=== PATIENT | female | born 1985 | race African-American/Black ===

== ENCOUNTER → 2018-01-09 | Outpatient (CLI) | payer BC, MEDICAID ==
[~2018-01-09] MED LIST: ATIVAN; PROZAC
[2018-01-09 13:28] LABS: CLARITY URINE CLEAR (CLEAR); COLOR URINE YELLOW (YELLOW); KETONES URINE NEGATIVE (NEGATIVE); LEUKOCYTE ESTERASE URINE NEGATIVE (NEGATIVE); NITRITE URINE NEGATIVE (NEGATIVE); OCCULT BLOOD URINE NEGATIVE (NEGATIVE); PH URINE 5.5 (4.5-8.0); PROTEIN URINE NEGATIVE (NEGATIVE); SPECIFIC GRAVITY URINE 1.028 (1.005-1.030); UROBILINOGEN URINE 0.2 E.U./dL (0.2-1.0)
[2018-01-09 13:50] LABS: BASOPHILS % 0.6 % (0.0-2.0); HEMATOCRIT. 35.5 % (36.0-48.0); HEMOGLOBIN. 11.3 g/dL (12.0-16.0); LYMPHOCYTES % 24.7 % (20.0-50.0); MEAN CORPUSCULAR HEMOGLOBIN 26.2 pg (28.0-32.0); MEAN CORPUSCULAR VOLUME 82.2 fL (81.0-99.0); MEAN PLATELET VOLUME 8.5 fl (7.4-10.4); MONOCYTES % 6.8 % (2.0-8.0); NEUTROPHILS % 65.9 % (40.0-76.0); PLATELET 356 x1000/uL (130-400); RED BLOOD CELL COUNT 4.31 mill/uL (4.2-5.4); RED CELL DISTRIBUTION WIDTH 16.3 % (11.6-14.6)
[2018-01-09 13:57] LABS: CHLORIDE 104 mEq/L (98-107)
[2018-01-09 14:03] LABS: LDL CHOLESTEROL 103 mg/dL (5-100)
[2018-01-09 14:05] LABS: HDL CHOLESTEROL 78 mg/dL (40-59)
[2018-01-09 14:07] LABS: T4 FREE 1.03 ng/dL (0.76-1.46)
[2018-01-09 14:14] LABS: HEPATITIS B SURFACE AB 54.6 mIU/mL
[2018-01-11 13:09] LABS: HIV SCREEN 4G Non Reactive (Non Reactive)
== END | disposition home or self-care (01) ==
LOC: LAB 13:07
PROVIDERS: ATTEND Anesthesiology Critical Care Medicine
DX: D64.9 Anemia, unspecified (principal); F41.9 Anxiety disorder, unspecified
CPT/HCPCS: 36415; 80053; 80061; 81003; 83036; 83540; 84439; 84443; 84481; 85025; 86592; 86706; 87186

== ENCOUNTER 2018-01-18 00:50 | Emergency (ER) | payer BC, OTHER ==
[~2018-01-18] VITALS: Ht 170.2 cm; Wt 69.0 kg
[2018-01-18] MEDS ORDERED: RALTEGRAVIR 400MG TABLET PO ONE (01:15)
[2018-01-18] MEDS ORDERED: TENOFOVIR 300MG TABLET PO ONE (01:15)
[2018-01-18] MEDS ORDERED: EMTRICITABINE 200MG CAPSULE PO ONE (01:15)
[2018-01-18 02:30] VITALS: BP 135/84
[2018-01-18 02:38] LABS: HEPATITIS B SURFACE ANTIGEN NEGATIVE
== END 2018-01-18 02:30 | disposition home or self-care (01) ==
LOC: ER 00:50
DX: S61.230A Puncture wound without foreign body of right index finger without damage to nail, initial encounter (principal); Z88.6 Allergy status to analgesic agent; W46.0XXA Contact with hypodermic needle, initial encounter; Y93.89 Activity, other specified; Y92.89 Other specified places as the place of occurrence of the external cause; Y99.8 Other external cause status
CPT/HCPCS: 36415; 99284